=== PATIENT | female | born 1975 | race Caucasian/White ===

== ENCOUNTER 2022-08-14 21:06 | Emergency (ER) | payer OTHER, SELFPAY ==
[2022-08-14] VITALS (8 sets, daily range): BP systolic 144–153; BP diastolic 84–91; PULSE 70–80; RESP 11–26; TEMP 37.2; O2SAT 97–98
--- NOTE | ~2022-08-14 | XR_ITS ---
EXAMINATION: XR chest 2V 08/14/2022 21:48 INDICATION: Cough and shortness of breath PROCEDURE: 2 view chest COMPARISON: No prior studies for comparison. FINDINGS: The lungs are clear. The cardiomediastinal silhouette is within normal limits. There are no pleural effusions. There is no pneumothorax suspected. IMPRESSION: 1: NO ACUTE CARDIOPULMONARY DISEASE. Reviewed, dictated and finalized at location A.
--- NOTE | ~2022-08-14 | CT_ITS ---
Clinical Indication: Shortness of breath, chest pain CT Scan of the Chest with Contrast: Technique: Contiguous sections were acquired throughout the chest after intravenous administration of 100 cc of Omnipaque 350. Dose reduction technique was used on this scan by utilizing automated expos ure control and iterative reconstruction technique. The dose-length product (DLP) was 672.21 mGy-cm. Findings: There is no evidence of any significant mediastinal, hilar or axillary lymphadenopathy. There is no f illing defect in the pulmonary arterial tree to suggest pulmonary embolus. There is no evidence of ao rtic dissection or aneurysm. Small hiatal hernia noted. There is no evidence of pleural or pericardial effusion. There is mild patchy airspace disease in the right lower lobe, compatible with pneumonia. Images through the upper abdomen reveal suspected diffuse fatty infiltration of the liver. Small calc ified gallstone present. Impression: Right lower lobe pneumonia. No pulmonary embolus. Reviewed, dictated and finalized at [facility]. Impression: Right lower lobe pneumonia. No pulmonary embolus.
[2022-08-14 22:04] LABS: Influenza A QL RT-PCR Negative (Negative); Influenza B QL RT-PCR Negative (Negative); SARS-CoV-2 RNA PCR Negative (Negative)
--- NOTE | 2022-08-14 22:44 | ECG_ITS ---
Measurements Intervals [place] Rate: 80 P: -3 [place]: 160 QRS: 31 QRSD: 74 T: 29 QT: 374 QTc: 431 Interpretive Statements SINUS RHYTHM NONSPECIFIC ST AND T WAVE ABNORMALITY NO PREVIOUS ECG AVAILABLE FOR COMPARISON Electronically Signed On 08-15-2022 18:21:15 CDT by Lisseth Sanchez M.D.
--- NOTE | 2022-08-14 22:47 | ED.URI ---
HPI - URI/Sore Throat General Chief Complaint: Upper Respiratory Infection <OSVALDO Simmons Last Filed: 08/15/22 02:48> Stated Complaint: congestion/fever <OSVALDO Simmons Last Filed: 08/15/22 02:48> Time Seen by Provider: 08/14/22 21:28 <OSVALDO Simmons Last Filed: 08/15/22 02:48> History of Present Illness HPI Narrative: 46 year old female here for evaluation of shortness of breath for the past 3 days. Patient states that she has become winded on minimal exertion, has had to stop doing her usual activities due to shortness of breath. She also reports a tightness in the center of her chest. She has had a dry cough throughout the day. She saw her primary care doctor, was placed on albuterol and Robitussin without relief of her symptoms. No leg swelling. <OSVALDO Simmons Last Filed: 08/15/22 02:48> Related Data Allergies/Adverse Reactions: Allergies Allergy/AdvReac Type Severity Reaction Status Date / Time Penicillins Allergy Anaphylaxis Verified 08/14/22 21:08 <OSVALDO Simmons Last Filed: 08/15/22 02:48> Review of Systems Review of Systems: Gen.: Denies fevers or chills Eyes: Denies eye pain or visual change ENT: Denies congestion Respiratory: Reports shortness of breath and cough CV: Reports chest pain GI: Denies abdominal pain nausea, emesis or diarrhea denies burning, urgency, frequency or hematuria Musculoskeletal: Denies back pain or muscle pain Neuro: Denies numbness, tingling, weakness or focal weakness Skin: Denies rash Except as documented, all other systems reviewed and negative <OSVALDO Simmons Last Filed: 08/15/22 02:48> Exam Narrative: APPEARANCE: Well appearing, no pain in distress, well-nourished. Head: Normocephalic and atraumatic. EYES: PERRLA/EOMI, conjunctivae clear NOSE: No nasal drainage EARS: External ear normal in appearance THROAT: Oropharynx is clear. Mucous membranes are moist. NECK: Supple. No adenopathy, no masses. RESPIRATORY: Airway patent, respirations nonlabored. Clear to auscultation bilaterally, no rales, rhonchi, wheezing. CARDIOVASCULAR: Regular rate and rhythm without murmurs, rubs, or gallops. ABDOMINAL: Normoactive bowel sounds. Soft, nontender, nondistended. No rebound tenderness or guarding. MUSCULOSKELETAL: Extremities are warm and well-perfused. Moves all extremities well. No edema. NEURO: Normal speech. No focal neurologic deficits. SKIN: Skin is warm and dry. No rashes. PSYCHIATRIC: Normal affect/mood. <Yulissa Wolf PA-C - Last Filed: 08/15/22 02:48> Course P[employer] JOURNEYMAN/PA Physician Supervision This is a was performed by both a physician and an APC. I performed all aspects of the MDM as documented w/ the following additions: 46-year-old female presented with URI symptoms and shortness of breath. The workup was significant for pneumonia in the upper lobe. She has good candidate for outpatient management is prescribed antibiotics. She has been given return precautions.All questions answered. Patient in agreement w/ disposition. <Jayden Love MD - Last Filed: 08/16/22 18:17> Vital Signs Vital signs: Vital Signs Temperature 99 F 08/14/22 21:15 Pulse Rate 78 08/14/22 21:15 Respiratory Rate 20 08/14/22 21:15 Blood Pressure 144/84 H 08/14/22 21:15 Pulse Oximetry 97 08/14/22 21:15 Oxygen Delivery Room Air 08/14/22 21:15 Temperature 99 F 08/14/22 21:15 Pulse Rate 89 08/15/22 01:52 Respiratory Rate 16 08/15/22 01:52 Blood Pressure 137/89 08/15/22 01:52 Pulse Oximetry 97 08/15/22 01:52 Oxygen Delivery Room Air 08/14/22 23:19 <Yulissa Wolf PA-C - Last Filed: 08/15/22 02:48> Vital Signs Temperature 99 F 08/14/22 21:15 Pulse Rate 78 08/14/22 21:15 Respiratory Rate 20 08/14/22 21:15 Blood Pressure 144/84 H 08/14/22 21:15 Pulse Oximetry 97 08/14/22 21:15 Oxygen
[2022-08-14 23:07] LABS: Basophils Percent Auto 0.4 % (0.2-1.2); Eosinophils Absolute Auto 0.2 K/mm3 (0-0.3); Eosinophils Percent Auto 3.5 % (0-4.4); Hematocrit 43.9 % (37.0-47.0); Hemoglobin 14.1 g/dL (12.0-15.0); Immature Granulocyte Absolute 0.01 K/mm3 (0.00-0.031); Immature Granulocyte Percent A 0.2 % (0-0.5); Lymphocytes Absolute Auto 1.31 K/mm3 (0.9-3.2); Lymphocytes Percent Auto 26.9 % (18.3-44.2); Mean Corpuscular HGB Conc 32.1 g/dl (32-36); Mean Corpuscular Hemoglobin 28.3 pg (26-34); Mean Platelet Volume 9.3 fl (7.4-10.4); Monocytes Absolute Auto 0.4 K/mm3 (0.1-0.6); Monocytes Percent Auto 8.8 % (2.6-8.5); Neutrophils Absolute Auto 2.9 K/mm3 (1.3-6.7); Neutrophils Percent Auto 60.2 % (45.5-73.1); Platelet Count Result 232 k/mm3 (150-375); Red Blood Count 4.99 M/mm3 (4.2-5.4); Red Cell Distribution Width 13.7 % (11.5-14.5); White Blood Count 4.9 K/mm3 (4.5-10.0)
[2022-08-14 23:18] LABS: Anion Gap 7 mmol/L (8-16); Blood Urea Nitrogen 9 mg/dL (7-17); Calcium 8.8 mg/dL (8.4-10.2); Carbon Dioxide 30 mmol/L (22-30); Chloride 102 mmol/L (98-107); Estimated CRCL calculation 75 ml/min; Estimated Glomerular Filt Rate > 60; Glucose 117 mg/dL (65-110); Potassium 4.2 mmol/L (3.4-5.0); Sodium 139 mmol/L (137-145)
[2022-08-14 23:30] LABS: NT Pro B Type Natriuretic Pept 48 pg/mL (19.9-100); Troponin I < 0.012 ng/mL (0.000-0.034)
[2022-08-15 00:03] VITALS: PULSE 69; RESP 14; O2SAT 99
[2022-08-15 00:10] VITALS: PULSE 71; RESP 17
[2022-08-15] MEDS: IPRATROPIUM BR 0.02% INH SOLN 0.5 MG/2.5 ML VIAL 1 MG INHALATION (00:10)
[2022-08-15] MEDS: LEVALBUTEROL NEB 1.25 MG/3 ML INHALATION (00:10)
[2022-08-15 00:16] VITALS: BP 149/86; PULSE 73; RESP 20; O2SAT 98
[2022-08-15 01:21] VITALS: BP 139/82; PULSE 86; RESP 13; O2SAT 97
[2022-08-15 01:35] VITALS: PULSE 83; RESP 15
[2022-08-15 01:52] VITALS: BP 137/89; PULSE 89; RESP 16; O2SAT 97
== END 2022-08-15 01:57 | disposition home or self-care (01) ==
PROVIDERS: Emergency Medicine; Emergency Provider Physician Assistant
DX: J18.9 Pneumonia, unspecified organism (principal); Z20.822 Contact with and (suspected) exposure to COVID-19
CPT/HCPCS: 36415; 71046; 71275; 80048; 83880; 84484; 85025; 85380; 87636; 93005; 94640; 99284; Q9967